=== PATIENT | male | born 1940 | race Caucasian/White ===

== ENCOUNTER → 2020-07-27 10:51 | Outpatient (BNVA) | payer MEDICARE, SELFPAY | PROVIDERS: PCP Internal Medicine; Referring Provider Internal Medicine; Visit Provider Internal Medicine Cardiovascular Disease | DX: I63.9 Cerebral infarction, unspecified (principal); I10 Essential (primary) hypertension | CPT/HCPCS: 93005; 99212 ==

== ENCOUNTER → 2020-08-05 09:52 | Outpatient (BNVA) | payer MEDICARE, SELFPAY | PROVIDERS: PCP Internal Medicine; Visit Provider Internal Medicine Cardiovascular Disease ==

== ENCOUNTER → 2020-11-14 09:47 | Outpatient (BNVA) | payer MEDICARE, SELFPAY | PROVIDERS: PCP Internal Medicine; Referring Provider Internal Medicine; Visit Provider Internal Medicine Cardiovascular Disease | DX: I63.9 Cerebral infarction, unspecified (principal); I10 Essential (primary) hypertension | CPT/HCPCS: 99212 ==

== ENCOUNTER → 2020-12-05 12:44 | Outpatient (BNVA) | payer MEDICARE, BC, SELFPAY | PROVIDERS: PCP Internal Medicine; Referring Provider Internal Medicine; Visit Provider Internal Medicine Cardiovascular Disease | DX: I63.9 Cerebral infarction, unspecified (principal); I10 Essential (primary) hypertension | CPT/HCPCS: 99212 ==

== ENCOUNTER → 2021-04-03 14:06 | Outpatient (BNVA) | payer MEDICARE, BC, SELFPAY | PROVIDERS: PCP Internal Medicine; Referring Provider Internal Medicine; Visit Provider Internal Medicine Cardiovascular Disease | DX: I10 Essential (primary) hypertension (principal) | CPT/HCPCS: 99212 ==

== ENCOUNTER → 2021-11-20 15:16 | Outpatient (BNVA) | payer MEDICARE, BC, SELFPAY | PROVIDERS: PCP Internal Medicine; Referring Provider Internal Medicine; Visit Provider Internal Medicine Cardiovascular Disease | DX: Z86.73 Personal history of transient ischemic attack (TIA), and cerebral infarction without residual deficits (principal); I10 Essential (primary) hypertension | CPT/HCPCS: 93005; 99212 ==

== ENCOUNTER → 2022-06-20 13:54 | Outpatient (BNVA) | payer MEDICARE, BC, SELFPAY | PROVIDERS: PCP Internal Medicine; Referring Provider Internal Medicine; Visit Provider Internal Medicine Cardiovascular Disease | DX: I10 Essential (primary) hypertension (principal); Z86.73 Personal history of transient ischemic attack (TIA), and cerebral infarction without residual deficits; Z79.899 Other long term (current) drug therapy | CPT/HCPCS: 99212 ==

== ENCOUNTER 2023-06-19 12:53 | Outpatient (AMB) | payer MEDICARE, BC, SELFPAY ==
--- NOTE | 2023-06-19 13:15 | MHC.OFFVIS ---
Intake Vital Signs 06/19/23 13:18 Height 5 ft 10 in Weight 178 lb 9.191 oz BMI 25.6 BP 136/50 L Blood Pressure Location Lt brachial Position Sitting Pulse 68 Intake Visit Reasons: 1 yr f/up Intake Note: 1 yr f/up patient its fine Manager Salt Required: No Accompanied by: Self / Same As Patient Allergies No Known Allergies Allergy (Verified 06/20/22 14:10) Medication List - Last Reconciled 06/19/23 by German Goodrich MD amlodipine 10 mg PO DAILY aspirin (Adult Low Dose Aspirin) 81 mg PO DAILY atorvastatin 40 mg PO DAILY hydrochlorothiazide 12.5 mg PO DAILY 90 days lamotrigine 25 mg PO BID multivitamin 1 tab PO DAILY HPI HPI Comments History of Present Illness Details 82-year-old gentleman with background CVA and hypertension. He is here for follow-up. Blood pressure control is good. Denying chest discomfort shortness of breath. Active and playing tennis and pickle ball without any functional limitations. Compliant with medications. 06/19/2023: He returns for follow-up. He has been doing well. No chest pain or shortness of breath. Blood pressure control is reasonable. No complaints and no issues over the last year. [facility] Medical History (Updated 07/27/20 @ 11:15 by German Goodrich MD) SCC (squamous cell carcinoma), scalp/neck Surgical History Status post surgical removal of malignant neoplasm of skin History of hernia repair Family History Father No problems noted. Mother Stroke CVD (cardiovascular disease) Social History Alcohol intake: current Alcohol intake frequency: 0-2 drinks per day Alcohol type: hard liquor Patient Tobacco Use Status: Never used Tobacco Physical Exam Vital Signs: Last Vital Signs Pulse 68 06/19/23 13:18 BP 136/50 L 06/19/23 13:18 BMI result Body Mass Index 25.6 GENERAL APPEARANCE: in no acute distress. NECK/THYROID: no carotid bruit, neck supple, no jugular venous distention. SKIN: no suspicious lesions, warm and dry. HEART: no murmurs, regular rate and rhythm, S1, S2 normal. LUNGS: clear to auscultation bilaterally. ABDOMEN: normal, bowel sounds present, soft, nontender, nondistended. EXTREMITIES: no edema. PERIPHERAL PULSES: equal. NEUROLOGIC: nonfocal, alert and oriented. PSYCH: mood/affect full range. Office Procedures EKG Details: Sinus rhythm 68 beats per minute, otherwise normal EKG, QTC 429 milliseconds. [id number], Complete Assessment & Plan Assessment & Plan (1) Essential hypertension: Code(s): I10 - Essential (primary) hypertension (2) CVA (cerebral vascular accident): Code(s): I63.9 - Cerebral infarction, unspecified Plan Pleasant 82 year gentleman who is here for follow-up. Taking amlodipine and hydrochlorothiazide for blood pressure. Previous TIA and is currently taking aspirin and atorvastatin. Clinically stable. He will see us back in 1 year. Thank you for allowing me to participate in the care of your patient. Please feel free to contact me if you have any questions. Coding Level of Care Code Est Pt Level 3 (71183) Diagnoses Essential hypertension I10 CVA (cerebral vascular accident) I63.9 CPT Codes EKG - CPT: 34720-[id number], Complete ([id number])
[2023-06-19 13:18] VITALS: BP 136/50; PULSE 68; BMI 25.6
== END 2023-06-19 13:35 | disposition home or self-care (01) ==
PROVIDERS: Visit Provider Internal Medicine Cardiovascular Disease
DX: I10 Essential (primary) hypertension (principal); I63.9 Cerebral infarction, unspecified
CPT/HCPCS: 93010; 99213

== ENCOUNTER → 2023-06-19 12:53 | Outpatient (BNVA) | payer MEDICARE, BC, SELFPAY | PROVIDERS: Visit Provider Internal Medicine Cardiovascular Disease | DX: I10 Essential (primary) hypertension (principal); Z79.82 Long term (current) use of aspirin; Z86.73 Personal history of transient ischemic attack (TIA), and cerebral infarction without residual deficits | CPT/HCPCS: 93005; 99212 ==

== ENCOUNTER 2024-06-22 10:00 | Outpatient (AMB) | payer MEDICARE, BC, SELFPAY ==
--- NOTE | 2024-06-22 10:02 | A.OFFVIS_ITS ---
Vital Signs 06/22/24 10:03 Height 5 ft 10 in Weight 182 lb 1.629 oz BMI 26.1 BP 140/62 H Blood Pressure Location Lt brachial Position Sitting Pulse 72 Pulse Source Monitor Intake Visit Reasons: 1 yr f/up Intake Note: 1 yr f/up Hitcher Required: No Accompanied by: Self / Same As Patient Allergies No Known Allergies Allergy (Verified 06/20/22 14:10) Medication List - Last Reconciled 06/22/24 by German Goodrich MD amlodipine 10 mg PO DAILY aspirin (Adult Low Dose Aspirin) 81 mg PO DAILY atorvastatin 40 mg PO DAILY hydrochlorothiazide 12.5 mg PO DAILY lamotrigine 25 mg PO BID multivitamin 1 tab PO DAILY HPI Comments Details: 83-year-old gentleman with background CVA and hypertension. He is here for follow-up. Blood pressure control is good. Denying chest discomfort and shortness of breath. Active and playing tennis and pickle ball without any functional limitations. Compliant with medications. 06/19/2023: He returns for follow-up. He has been doing well. No chest pain or shortness of breath. Blood pressure control is reasonable. No complaints and no issues over the last year. 06/22/24: Here for yearly follow-up. Manual blood pressure is 152/62. He is currently taking hydrochlorothiazide and amlodipine. He has not been as active as usual because of skin cancer and Moh's surgery. No symptoms otherwise. [facility] Medical History (Updated 07/27/20 @ 11:15 by German Goodrich MD) SCC (squamous cell carcinoma), scalp/neck Surgical History Status post surgical removal of malignant neoplasm of skin History of hernia repair Family History Father No problems noted. Mother Stroke CVD (cardiovascular disease) Social History Alcohol intake: current Alcohol intake frequency: 0-2 drinks per day Alcohol type: hard liquor Patient Tobacco Use Status: Never used Tobacco Review of Systems Const Denies chills, Denies fatigue, Denies fever(s), Denies frequent falls, Denies weakness, Denies weight gain and Denies weight loss ENT Denies dizziness Card Denies chest pain, Denies leg edema, Denies lightheadedness, Denies palpitations, Denies dyspnea and Denies dyspnea on exertion Resp Denies cough, Denies dyspnea and Denies dyspnea on exertion GI Denies hematochezia Musc Denies abnormal gait, Denies muscle weakness, Denies numbness, Denies radiating pain into limb and Denies tingling Neuro Denies abnormal gait, Denies dizziness, Denies frequent falls, Denies numbness, Denies tingling and Denies weakness Endo Denies fatigue and Denies palpitations Physical Exam Vital Signs: Last Vital Signs Pulse 72 06/22/24 10:03 BP 140/62 H 06/22/24 10:03 BMI result Body Mass Index 26.1 GENERAL APPEARANCE: in no acute distress. NECK/THYROID: no carotid bruit, no jugular venous distention. SKIN: no suspicious lesions, warm and dry. HEART: no murmurs, regular rate and rhythm, S1, S2 normal. LUNGS: clear to auscultation bilaterally. ABDOMEN: normal, bowel sounds present, soft, nontender, nondistended. EXTREMITIES: no edema. PERIPHERAL PULSES: equal. NEUROLOGIC: nonfocal, alert and oriented. Office Procedures EKG Details: Sinus rhythm 72 beats per minute, normal axis, normal ECG, QTC 438 milliseconds. [id number], Complete Assessment & Plan Assessment & Plan (1) Essential hypertension: Code(s): I10 - Essential (primary) hypertension Category: Medical (2) CVA (cerebral vascular accident): Code(s): I63.9 - Cerebral infarction, unspecified Category: Medical Plan [age] gentleman who is here for follow-up. He is background history of TIA and hypertension. He is on aspirin and atorvastatin 40 mg daily. Neurologically stable. Blood pressure is elevated and manual blood pressure actually is higher than electronic blood pressure. He is on amlodipine and hydrochlorothiazide. Adding losartan 25 mg daily. He will come back in 10 days for blood pressure check with nurse. Will continue to follow up with us once a year. Thank you for allowing me to participate in the care of your patient. Please feel free to contact me if you have any questions. Medications: New losartan 25 mg PO DAILY 60 tabs 3RF Coding Level of Care Code Est Pt Level 4 (17944) Diagnoses Essential hypertension I10 CVA (cerebral vascular accident) I63.9 CPT Codes EKG - CPT: 99391-Irotrzxfxbtvjwhid, Complete ([id number])
[2024-06-22 10:03] VITALS: BP 140/62; PULSE 72; BMI 26.1
== END 2024-06-22 10:28 | disposition home or self-care (01) ==
PROVIDERS: PCP Internal Medicine; Visit Provider Internal Medicine Cardiovascular Disease
DX: I10 Essential (primary) hypertension (principal); I63.9 Cerebral infarction, unspecified
CPT/HCPCS: 93010; 99214

== ENCOUNTER → 2024-06-22 10:00 | Outpatient (BNVA) | payer MEDICARE, BC, SELFPAY | PROVIDERS: PCP Internal Medicine; Visit Provider Internal Medicine Cardiovascular Disease | DX: I10 Essential (primary) hypertension (principal); Z79.82 Long term (current) use of aspirin; Z79.899 Other long term (current) drug therapy; Z86.73 Personal history of transient ischemic attack (TIA), and cerebral infarction without residual deficits | CPT/HCPCS: 93005; 99212 ==

== ENCOUNTER → 2024-07-06 08:45 | Outpatient (BNVA) | payer MEDICARE, BC, SELFPAY | PROVIDERS: PCP Internal Medicine; Visit Provider Internal Medicine Cardiovascular Disease ==

== ENCOUNTER 2025-04-27 13:08 | Outpatient (AMB) | payer MEDICARE, BC, SELFPAY ==
--- NOTE | 2025-04-27 13:11 | MHC.OFFVIS ---
Intake Visit Reasons: 6mnth Allergies No Known Allergies Allergy (Verified 06/20/22 14:10) HPI Comments Details: The patient is an 84-year-old male presenting with a wellness visit for medication management. The patient describes his overall condition as stable and satisfactory. He reports adequate mood regulation and satisfactory sleep quality. Losartan was prescribed in June to control blood pressure, which he confirms he takes twice daily. His current blood pressure readings are well maintained, last noted to be around 120 mmHg. The patient notes recent prescription refills for his medication and will need continued refills every three months. He reports no adverse reactions or complications from the medication or any new health issues since the last visit. Overall, the patient's management of his blood pressure through medication has been beneficial, with no new health concerns reported during this visit. 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 Mother Stroke CVD (cardiovascular disease) Social History Alcohol intake: current Alcohol intake frequency: 0-2 drinks per day Alcohol type: hard liquor Patient Tobacco Use Status: Never used Tobacco Review of Systems Const Details: - General: Reports doing fine, no complaints. - Psychiatric: Reports mood is okay. - Sleep: Reports sleep is okay. - Cardiovascular: Reports blood pressure is adequately controlled. Physical Exam Neuro Other: Mental Status: Alert and oriented to person, place, and time. Normal attention. Normal spontaneous speech, fluency, and comprehension. No obvious issues with mood and memory. Affect is appropriate. Cranial Nerves: CN II: Visual perez full to confrontation, visual acuity intact. CN III, IV, : Pupils equal, round, reactive to light and accommodation. Extraocular movements are normal. CN V: Facial sensation is normal. CN VII: Facial movements symmetrical. CN VIII: Hearing intact to bedside conversation is normal. CN IX, X: Palate elevates symmetrically. CN XI: Shoulder shrug and head turn symmetrical. CN XII: Tongue midline without atrophy or fasciculations. Extrapyramidal: Full facial expressions and blinking. No rigidity. Movements are appropriate with no tremor or abnormality. Speech: Normal; no dysarthria or tremor. 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
== END 2025-04-27 13:23 | disposition home or self-care (01) ==
LOC: HO.HSM 13:09
PROVIDERS: PCP Internal Medicine; Referring Provider Internal Medicine; Visit Provider Psychiatry & Neurology Neurology
DX: G40.209 Localization-related (focal) (partial) symptomatic epilepsy and epileptic syndromes with complex partial seizures, not intractable, without status epilepticus (principal)
CPT/HCPCS: 99213

== ENCOUNTER → 2025-04-27 13:08 | Outpatient (BNVA) | payer MEDICARE, BC, SELFPAY | PROVIDERS: PCP Internal Medicine; Referring Provider Internal Medicine; Visit Provider Psychiatry & Neurology Neurology | DX: G40.209 Localization-related (focal) (partial) symptomatic epilepsy and epileptic syndromes with complex partial seizures, not intractable, without status epilepticus (principal) | CPT/HCPCS: 99212 ==

== ENCOUNTER 2025-06-21 09:53 | Outpatient (AMB) | payer MEDICARE, BC, SELFPAY ==
[2025-06-21 10:02] VITALS: BP 120/62; PULSE 66; BMI 26.1
--- NOTE | 2025-06-21 10:02 | A.OFFVIS_ITS ---
Vital Signs 06/21/25 10:02 Height 5 ft 10 in Weight 182 lb 1.629 oz BMI 26.1 BP 120/62 Blood Pressure Location Lt brachial Position Sitting Pulse 66 Pulse Source Monitor Intake Visit Reasons: 1 yr f/up Intake Note: 1 yr f/up Visitor Use Assistant Required: No Accompanied by: Self / Same As Patient Allergies No Known Allergies Allergy (Verified 06/20/22 14:10) Medication List - Last Reconciled 06/21/25 by German Goodrich MD amlodipine 10 mg PO DAILY aspirin (Adult Low Dose Aspirin) 81 mg PO DAILY atorvastatin 40 mg PO DAILY hydrochlorothiazide 12.5 mg PO DAILY lamotrigine 25 mg PO BID losartan 25 mg PO DAILY multivitamin 1 tab PO DAILY HPI Comments Details: 84-year-old gentleman with background CVA and hypertension. He is here for follow-up. Blood pressure control is good. Denying chest discomfort and shortness of breath. Active and playing tennis and pickle ball without any functional limitations. Compliant with medications. 06/19/2023: He returns for follow-up. He has been doing well. No chest pain or shortness of breath. Blood pressure control is reasonable. No complaints and no issues over the last year. 06/22/24: Here for yearly follow-up. Manual blood pressure is 152/62. He is currently taking hydrochlorothiazide and amlodipine. He has not been as active as usual because of skin cancer and Moh's surgery. No symptoms otherwise. 06/21/2025: He is here for 1 year follow-up. His blood pressure previously was elevated and was started on losartan 25 mg daily. His blood pressure is well controlled since then. He had some hip issue and was undergoing physiotherapy. He is saying that he is planning to restart pickleball. He is denying any chest pain or shortness of breath. Overall clinically stable. 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 Mother Stroke CVD (cardiovascular disease) Social History Alcohol intake: current Alcohol intake frequency: 0-2 drinks per day Alcohol type: hard liquor Patient Tobacco Use Status: Never used Tobacco Review of Systems Const Denies chills, Denies fatigue, Denies fever(s), Denies frequent falls, Denies weakness, Denies weight gain and Denies weight loss ENT Denies dizziness Card Denies chest pain, Denies leg edema, Denies lightheadedness, Denies palpitations, Denies dyspnea and Denies dyspnea on exertion Resp Denies cough, Denies dyspnea and Denies dyspnea on exertion GI Denies hematochezia Musc Denies abnormal gait, Denies muscle weakness, Denies numbness, Denies radiating pain into limb and Denies tingling Neuro Denies abnormal gait, Denies dizziness, Denies frequent falls, Denies numbness, Denies tingling and Denies weakness Endo Denies fatigue and Denies palpitations Physical Exam Vital Signs: Last Vital Signs Pulse 66 06/21/25 10:02 BP 120/62 06/21/25 10:02 BMI result Body Mass Index 26.1 GENERAL APPEARANCE: in no acute distress. NECK/THYROID: no carotid bruit, no jugular venous distention. SKIN: no suspicious lesions, warm and dry. HEART: no murmurs, regular rate and rhythm, S1, S2 normal. LUNGS: clear to auscultation bilaterally. ABDOMEN: normal, bowel sounds present, soft, nontender, nondistended. EXTREMITIES: no edema. PERIPHERAL PULSES: equal. NEUROLOGIC: nonfocal, alert and oriented. Office Procedures EKG Details: Sinus rhythm 66 beats per minute, normal axis, normal ECG, QTC 410 milliseconds. [id number], Complete Assessment & Plan Assessment & Plan (1) Essential hypertension: Code(s): I10 - Essential (primary) hypertension Category: Medical (2) CVA (cerebral vascular accident): Code(s): I63.9 - Cerebral infarction, unspecified Category: Medical Plan 84-year-old gentleman who is here for follow-up. He has background history of TIA and hypertension. He is on aspirin and atorvastatin 40 mg daily. Neurologically stable. Blood pressure previously was elevated but with the addition of losartan his blood pressure is well controlled. I have advised him to continue same medications amlodipine, hydrochlorothiazide and losartan. Follow up with us in 1 year. Thank you for allowing me to participate in the care of your patient. Please feel free to contact me if you have any questions. Coding Level of Care Code Est Pt Level 4 (82656) Diagnoses Essential hypertension I10 CVA (cerebral vascular accident) I63.9 CPT Codes EKG - CPT: 08857-[id number], Complete ([id number])
== END 2025-06-21 10:18 | disposition home or self-care (01) ==
LOC: HO.HCS 09:53
PROVIDERS: PCP Internal Medicine; Visit Provider Internal Medicine Cardiovascular Disease
DX: I10 Essential (primary) hypertension (principal); I63.9 Cerebral infarction, unspecified
CPT/HCPCS: 93010; 99214

== ENCOUNTER → 2025-06-21 09:53 | Outpatient (BNVA) | payer MEDICARE, BC, SELFPAY | PROVIDERS: PCP Internal Medicine; Visit Provider Internal Medicine Cardiovascular Disease | DX: I10 Essential (primary) hypertension (principal); I63.9 Cerebral infarction, unspecified; Z79.1 Long term (current) use of non-steroidal anti-inflammatories (NSAID) | CPT/HCPCS: 93005; 99212 ==